=== PATIENT | male | born 1990 | race Caucasian/White ===

== ENCOUNTER 2016-10-20 18:12 | Emergency (ER) | payer MEDICAID ==
[2016-10-20 18:36] VITALS: BP 130/79
== END 2016-10-20 19:26 | disposition left against medical advice (07) ==
LOC: ER 18:12
DX: Z53.21 Procedure and treatment not carried out due to patient leaving prior to being seen by health care provider (principal)

== ENCOUNTER 2017-02-23 07:59 | Emergency (ER) | payer MEDICAID ==
[2017-02-23 08:06] VITALS: BP 145/75
== END 2017-02-23 08:29 | disposition left against medical advice (07) ==
LOC: ER 07:59
DX: Z53.21 Procedure and treatment not carried out due to patient leaving prior to being seen by health care provider (principal)

== ENCOUNTER 2017-03-30 16:26 | Emergency (ER) | payer MEDICAID ==
[2017-03-30] MEDS ORDERED: ALPRAZolam 0.25 MG TABLET PO ONE (16:54)
[2017-03-30 16:59] LABS: Urine Bilirubin Negative (NEGATIVE); Urine Blood Negative /ul (NEGATIVE); Urine Ketone Negative (NEGATIVE); Urine Nitrite Negative (NEGATIVE); Urine Protein Negative (NEGATIVE); Urine Specific Gravity <=1.005 SP.GR. (1.005-1.030); Urine Urobilinogen Normal (NORMAL)
[2017-03-30] MEDS ORDERED: ALPRAZolam 0.25 MG TABLET ONE (17:00)
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
[2017-03-30 17:15] LABS: Hematocrit 46.5 % (42.0-52.0); Hemoglobin 16.8 gm/dL (13.5-18.0); Mean Cell Volume 87.6 fl (78-100); Mean Corpuscular Hemoglobin 31.6 pg (27-31); Mean Corpuscular Hgb Conc 36.1 g/dl (32-36); Mean Platelet Volume 10.7 fl (6.0-9.5); Neutrophil # 4.8 K/mm3 (1.3-6.0); Neutrophil % 62.3 % (42-75.0); Platelet Count 238 K/mm3 (150-450); Red Blood Count 5.31 M/mm3 (4.7-6.0); Red Cell Distribution Width 12.9 % (11.5-14.0); White Blood Count 7.7 K/mm3 (4.0-10.5)
[2017-03-30 17:16] LABS: Cocaine Ur Negative (NEGATIVE); Urine Barbiturate Negative (NEGATIVE); Urine Benzodiazepines Negative (NEGATIVE); Urine Opiates Negative (NEGATIVE); Urine PCP Negative (NEGATIVE); Urine THC Negative (NEGATIVE)
[2017-03-30 17:22] LABS: Urine Appearance Clear; Urine Color Yellow
[2017-03-30 17:23] LABS: Urine Bacteria TRACE; Urine RBC None Seen /hpf (0-5); Urine WBC None Seen /hpf (0-5)
[2017-03-30 17:36] LABS: ALT 26 U/L (19-67); AST 22 U/L (0-48); Alkaline Phosphatase * 58 U/L (50-170); Anion Gap 15.7 mmol/L (6.8-13.8); BUN/Creatinine Ratio 9.3 (9.0-21.6); Bilirubin, Total 0.9 mg/dL (0.0-1.1); Blood Urea Nitrogen 10 mg/dL (6-23); Ca. Corrected For Albumin 8.5 mg/dL (8.4-10.2); Calcium * 8.8 mg/dL (7.9-10.9); Carbon Dioxide 23.7 mmol/L (24-32.6); Chloride 102 mmol/L (97-106); Glucose * 121 mg/dL (70-110); Potassium 3.4 mmol/L (3.4-4.6); Salicylate 3.4 mg/dL (2.8-20.0); Sodium 138 mmol/L (132-142); TSH * 1.541 uIU/mL (0.358-3.74); Total Protein 7.3 gm/dL (6.2-8.2)
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
[2017-03-30] MEDS ORDERED: DIPHENOXYLATE HCL/ATROP SULF 2.5 MG TABLET PO ONE (22:46)
[2017-03-31] MEDS ORDERED: ALPRAZolam 0.25 MG TABLET PO ONE (18:19)
[2017-03-31] MEDS ORDERED: ALPRAZolam 0.25 MG TABLET ONE ×2 (18:33→18:34)
[2017-03-31 18:48] VITALS: BP 146/84
== END 2017-03-31 19:07 | disposition short-term general hospital (02) ==
LOC: ER 16:26
DX: R45.851 Suicidal ideations (principal); F32.9 Major depressive disorder, single episode, unspecified; F51.5 Nightmare disorder; F17.200 Nicotine dependence, unspecified, uncomplicated
CPT/HCPCS: 36415; 80053; 80307; 81001; 84443; 85025; 99284; G0480; G0481

== ENCOUNTER 2017-04-22 12:09 | Emergency (ER) | payer MEDICAID ==
[2017-04-22 12:44] LABS: Hematocrit 46.3 % (42.0-52.0); Hemoglobin 16.3 gm/dL (13.5-18.0); Mean Corpuscular Hgb Conc 35.2 g/dl (32-36); Mean Platelet Volume 10.2 fl (6.0-9.5); Neutrophil # 4.9 K/mm3 (1.3-6.0); Neutrophil % 65.9 % (42-75.0); Platelet Count 245 K/mm3 (150-450); Red Blood Count 5.09 M/mm3 (4.7-6.0); Red Cell Distribution Width 12.9 % (11.5-14.0); White Blood Count 7.5 K/mm3 (4.0-10.5)
[2017-04-22 12:55] LABS: Urine Bilirubin Negative (NEGATIVE); Urine Blood Negative /ul (NEGATIVE); Urine Ketone Negative (NEGATIVE); Urine Nitrite Negative (NEGATIVE); Urine Protein Negative (NEGATIVE); Urine Urobilinogen Normal (NORMAL); Urine pH 6.5 pH (5.0-7.0)
[2017-04-22] MEDS ORDERED: ALPRAZolam 0.25 MG TABLET PO ONE (12:56)
[2017-04-22] MEDS ORDERED: ALPRAZolam 0.25 MG TABLET ONE (12:57)
[2017-04-22 13:04] LABS: Urine Appearance Clear; Urine Bacteria None Seen; Urine Color Yellow; Urine RBC None Seen /hpf (0-5); Urine WBC None Seen /hpf (0-5)
[2017-04-22 13:06] LABS: ALT 52 U/L (19-67); AST 34 U/L (0-48); Albumin * 3.9 gm/dl (3.4-5.0); Alkaline Phosphatase * 74 U/L (50-170); Anion Gap 11.6 mmol/L (6.8-13.8); BUN/Creatinine Ratio 5.8 (9.0-21.6); Bilirubin, Total 0.6 mg/dL (0.0-1.1); Blood Urea Nitrogen 6 mg/dL (6-23); Ca. Corrected For Albumin 8.9 mg/dL (8.4-10.2); Calcium * 9.1 mg/dL (7.9-10.9); Carbon Dioxide 28.2 mmol/L (24-32.6); Chloride 106 mmol/L (97-106); Glucose * 87 mg/dL (70-110); Potassium 3.8 mmol/L (3.4-4.6); Salicylate 3.3 mg/dL (2.8-20.0); Sodium 142 mmol/L (132-142); TSH * 0.942 uIU/mL (0.358-3.74); Total Protein 7.5 gm/dL (6.2-8.2)
[2017-04-22 13:07] LABS: Cocaine Ur Negative (NEGATIVE); Urine Barbiturate Negative (NEGATIVE); Urine Benzodiazepines Negative (NEGATIVE); Urine Opiates Negative (NEGATIVE); Urine PCP Negative (NEGATIVE); Urine THC Positive (NEGATIVE)
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
[2017-04-23] MEDS ORDERED: QUEtiapine FUMARATE 100 MG TABLET PO SCH (00:15)
[2017-04-23] MEDS ORDERED: LORazepam 1 MG TABLET PO ONE (10:17)
[2017-04-23] MEDS ORDERED: LORazepam 1 MG TABLET ONE (10:18)
[2017-04-23 10:21] VITALS: BP 150/104
== END 2017-04-23 10:30 | disposition short-term general hospital (02) ==
LOC: ER 12:09
DX: R45.851 Suicidal ideations (principal); F32.9 Major depressive disorder, single episode, unspecified
CPT/HCPCS: 36415; 80053; 80307; 81001; 84443; 85025; 99285; G0480; G0481

== ENCOUNTER 2017-05-02 16:37 | Emergency (ER) | payer MEDICAID ==
[2017-05-02] MEDS ORDERED: LORazepam 2 MG/ML DISP.SYRIN ONE (16:45)
[2017-05-02] MEDS ORDERED: LORazepam 2 MG/ML DISP.SYRIN IM ONE (16:45)
[2017-05-02] MEDS ORDERED: HALOPERIDOL LACTATE 5 MG/ML VIAL ONE (16:45)
[2017-05-02] MEDS ORDERED: HALOPERIDOL LACTATE 5 MG/ML VIAL IM ONE (16:45)
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
[2017-05-02 17:18] LABS: Hematocrit 50.9 % (42.0-52.0); Hemoglobin 17.6 gm/dL (13.5-18.0); Mean Cell Volume 91.7 fl (78-100); Mean Corpuscular Hemoglobin 31.7 pg (27-31); Mean Corpuscular Hgb Conc 34.6 g/dl (32-36); Mean Platelet Volume 10.3 fl (6.0-9.5); Platelet Count 298 K/mm3 (150-450); Red Blood Count 5.55 M/mm3 (4.7-6.0); Red Cell Distribution Width 12.8 % (11.5-14.0); White Blood Count 14.7 K/mm3 (4.0-10.5)
[2017-05-02 17:20] LABS: Urine Bilirubin Negative (NEGATIVE); Urine Blood Negative /ul (NEGATIVE); Urine Ketone Negative (NEGATIVE); Urine Nitrite Negative (NEGATIVE); Urine Protein Negative (NEGATIVE); Urine Specific Gravity <=1.005 SP.GR. (1.005-1.030); Urine Urobilinogen Normal (NORMAL)
[2017-05-02 17:23] LABS: Total Cells Counted 100
[2017-05-02 17:29] LABS: Urine Appearance Clear; Urine Bacteria None Seen; Urine Color Yellow; Urine RBC None Seen /hpf (0-5); Urine WBC None Seen /hpf (0-5)
[2017-05-02 17:37] LABS: Atypical (Reactive) Lymph 9 % (0-2); Lymphocyte 39 % (20-51); Monocyte 9 % (0-9); Neutrophil 43 % (42-75); Neutrophil # 6.3 K/mm3 (1.3-6.0); Platelet Estimate Normal (NORMAL); RBC Morphology Normal (NORMAL)
[2017-05-02 17:49] LABS: ALT 66 U/L (19-67); AST 27 U/L (0-48); Albumin * 4.3 gm/dl (3.4-5.0); Alkaline Phosphatase * 74 U/L (50-170); Anion Gap 28.5 mmol/L (6.8-13.8); BUN/Creatinine Ratio 8.8 (9.0-21.6); Bilirubin, Total 0.3 mg/dL (0.0-1.1); Blood Urea Nitrogen 11 mg/dL (6-23); Ca. Corrected For Albumin 8.1 mg/dL (8.4-10.2); Calcium * 8.7 mg/dL (7.9-10.9); Carbon Dioxide 15.3 mmol/L (24-32.6); Chloride 104 mmol/L (97-106); Glucose * 86 mg/dL (70-110); Magnesium 2.3 mg/dL (1.2-2.8); Potassium 2.8 mmol/L (3.4-4.6); Salicylate 3.6 mg/dL (2.8-20.0); Sodium 145 mmol/L (132-142); Total Protein 8.2 gm/dL (6.2-8.2)
[2017-05-02 18:57] LABS: Cocaine Ur Negative (NEGATIVE); Urine Barbiturate Negative (NEGATIVE); Urine Benzodiazepines Negative (NEGATIVE); Urine Opiates Negative (NEGATIVE); Urine PCP Negative (NEGATIVE); Urine THC Negative (NEGATIVE)
[2017-05-02] MEDS ORDERED: NORMAL SALINE 1,000 ML IV ONE (19:49)
[2017-05-03] MEDS ORDERED: chlordiazePOXIDE HCL 10 MG CAPSULE PO ONE (08:29)
[2017-05-03] MEDS ORDERED: LORazepam 1 MG TABLET PO ONE (09:38)
[2017-05-03] MEDS ORDERED: LORazepam 1 MG TABLET ONE (09:40)
[2017-05-03] MEDS ORDERED: NICOTINE 21 MG PATC TD ONE (09:48)
[2017-05-03] MEDS: NICOTINE 21 MG PATC TD SCH (09:51)
[2017-05-03] MEDS ORDERED: IBUPROFEN 400 MG TABLET PO ONE (11:15)
[2017-05-03] MEDS ORDERED: IBUPROFEN 400 MG TABLET ONE (11:16)
[2017-05-03] MEDS ORDERED: ZIPRASIDONE HCL 20 MG CAPSULE PO ONE (11:31)
[2017-05-03] MEDS ORDERED: ZIPRASIDONE HCL 20 MG CAPSULE ONE (12:57)
[2017-05-03] MEDS ORDERED: SERTRALINE HCL 50 MG TABLET ONE (20:40)
[2017-05-03] MEDS: SERTRALINE HCL 100 MG TABLET PO SCH (20:43)
[2017-05-03] MEDS ORDERED: SERTRALINE HCL 100 MG PO SCH (21:00)
[2017-05-03] MEDS ORDERED: TOPIRAMATE 50 MG TABLET PO SCH (21:00)
[2017-05-03] MEDS ORDERED: PRAZOSIN HCL 5 MG CAPSULE PO SCH (21:00)
[2017-05-03] MEDS ORDERED: RISPERIDONE 1 MG PO SCH (21:00)
[2017-05-03] MEDS ORDERED: QUEtiapine FUMARATE 100 MG TABLET PO SCH (21:00)
[2017-05-03] MEDS ORDERED: QUETIAPINE FUMARATE 300 MG PO SCH (21:00)
[2017-05-04] MEDS ORDERED: POTASSIUM CHLORIDE 20 MEQ TABLET.SA PO ONE (08:14)
[2017-05-04] MEDS: SERTRALINE HCL 100 MG TABLET PO SCH (08:21)
--- NOTE | 2017-05-04 08:21 | PN ---
Subjective - Date and Time Seen Date: 05/04/17 Time: 08:16 Subjective Narrative: patient has no concerns, slept , well, would like breakfast and clean scrubs, denies any depression or suicidal ideation currently Objective - Review of Systems Generalized/Overall Review: Reports: No Symptoms Reported Respiratory: Denies: Shortness of Breath Cardiac: Denies: Chest Pain Abdominal: Denies: Nausea, Vomiting Genitourinary Symptoms: Reports: No Symptoms Reported Neurological: Denies: Headache - Vitals Vitals: Last Vital Signs Temp 36.4 C L 05/04/17 07:51 Pulse 86 05/04/17 07:51 Resp 14 05/04/17 07:51 BP 128/82 05/04/17 07:51 Pulse Ox 98 05/04/17 07:51 - Exam Constitutional: Present: Alert, Oriented x3, Cooperative, No distress Respiratory: Present: lungs clear, normal breath sounds Cardiovascular/Chest: Present: regular rate, rhythm Abdomen: Present: soft, nontender Extremity: Present: no pedal edema Skin Exam: Present: normal color Neurologic: Present: alert, normal mood/affect Appearance: Present: appropriate appearance Eye contact: Present: cooperative, good eye contact Thoughts: Present: normal thought pattern Assessment/Plan Plan Narrative: reviewed chart, prior notes and labs patient was court committed by his mother for psych evaluation, papers are on the chart, court hearing on 05/07/17 will continue to try to find placement will supplement potassium, give prior maintenance medications
[2017-05-04] MEDS ORDERED: POTASSIUM CHLORIDE 20 MEQ TABLET.SA ONE (08:22)
[2017-05-04] MEDS ORDERED: SERTRALINE HCL 100 MG TABLET PO ONE (08:30)
[2017-05-04] MEDS ORDERED: LORazepam 2 MG/ML DISP.SYRIN IM ONE (10:58)
[2017-05-04] MEDS ORDERED: LORazepam 2 MG/ML DISP.SYRIN ONE (10:59)
[2017-05-04] MEDS ORDERED: NICOTINE 21 MG PATC TD ONE (10:59)
[2017-05-04] MEDS ORDERED: NICOTINE 21 MG PATC TD SCH (11:00)
[2017-05-04] MEDS: NICOTINE 21 MG PATC TD SCH (11:02)
[2017-05-04] MEDS ORDERED: ALPRAZolam 0.25 MG TABLET PO ONE (14:21)
--- NOTE | 2017-05-04 14:29 | PN ---
Progesmichael Note - Interim Narrative: 05/04/17 14:25 patient has been calm and cooperative, is feeling restless and is asking for xanax stating that he usually takes that out patient, 'ativan is not helping' he is also asking very politely whether he could walk around some to get out of the small room that he has been in for almost two days. 'I don't want to cause you any trouble and have you think I am going to run away ' [facility] is accepting patient for transfer, waiting for ETA on transport
[2017-05-04] MEDS ORDERED: ALPRAZolam 0.25 MG TABLET ONE (15:19)
[2017-05-04 15:56] VITALS: BP 127/66
== END 2017-05-04 16:40 | disposition short-term general hospital (02) ==
LOC: ER 16:37
DX: F10.121 Alcohol abuse with intoxication delirium (principal); F20.0 Paranoid schizophrenia; F17.200 Nicotine dependence, unspecified, uncomplicated
CPT/HCPCS: 36415; 80053; 80307; 81001; 83735; 85025; 96372; 99285; G0480; G0481

== ENCOUNTER 2017-05-13 21:29 | Emergency (ER) | payer MEDICAID ==
[2017-05-13] MEDS ORDERED: LORazepam 2 MG/ML DISP.SYRIN ONE (22:18)
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
[2017-05-13 22:20] LABS: Urine Bilirubin Negative (NEGATIVE); Urine Blood Negative /ul (NEGATIVE); Urine Ketone Negative (NEGATIVE); Urine Nitrite Negative (NEGATIVE); Urine Protein Negative (NEGATIVE); Urine Specific Gravity <=1.005 SP.GR. (1.005-1.030); Urine Urobilinogen Normal (NORMAL)
[2017-05-13] MEDS ORDERED: LORazepam 1 MG TABLET PO ONE (22:20)
[2017-05-13] MEDS ORDERED: LORazepam 2 MG/ML DISP.SYRIN IM ONE (22:25)
[2017-05-13 22:26] LABS: Urine Appearance Clear; Urine Color Pale Yellow; Urine RBC None Seen /hpf (0-5); Urine WBC None Seen /hpf (0-5)
[2017-05-13 22:27] LABS: Hematocrit 44.6 % (42.0-52.0); Hemoglobin 16.2 gm/dL (13.5-18.0); Mean Cell Volume 88.1 fl (78-100); Mean Corpuscular Hgb Conc 36.3 g/dl (32-36); Mean Platelet Volume 10.5 fl (6.0-9.5); Neutrophil # 5.1 K/mm3 (1.3-6.0); Neutrophil % 57.7 % (42-75.0); Platelet Count 223 K/mm3 (150-450); Red Blood Count 5.06 M/mm3 (4.7-6.0); Red Cell Distribution Width 12.8 % (11.5-14.0); White Blood Count 8.8 K/mm3 (4.0-10.5)
[2017-05-13 22:27] LABS: Cocaine Ur Negative (NEGATIVE); Urine Bacteria None Seen; Urine Barbiturate Negative (NEGATIVE); Urine Benzodiazepines Negative (NEGATIVE); Urine Opiates Negative (NEGATIVE); Urine PCP Negative (NEGATIVE); Urine THC Negative (NEGATIVE)
[2017-05-13 22:50] LABS: ALT 83 U/L (19-67); AST 47 U/L (0-48); Alkaline Phosphatase * 69 U/L (50-170); Anion Gap 16.5 mmol/L (6.8-13.8); BUN/Creatinine Ratio 7.3 (9.0-21.6); Bilirubin, Total 0.3 mg/dL (0.0-1.1); Blood Urea Nitrogen 7 mg/dL (6-23); Ca. Corrected For Albumin 8.5 mg/dL (8.4-10.2); Calcium * 8.8 mg/dL (7.9-10.9); Carbon Dioxide 26.1 mmol/L (24-32.6); Chloride 105 mmol/L (97-106); Glucose * 122 mg/dL (70-110); Potassium 3.6 mmol/L (3.4-4.6); Salicylate Less than 2.8 mg/dL (2.8-20.0); Sodium 144 mmol/L (132-142); TSH * 4.055 uIU/mL (0.358-3.74); Total Protein 7.3 gm/dL (6.2-8.2)
[2017-05-14] MEDS ORDERED: LORazepam 1 MG TABLET PO ONE (04:17)
[2017-05-14] MEDS ORDERED: LORazepam 1 MG TABLET ONE (04:18)
[2017-05-14] MEDS ORDERED: IBUPROFEN 400 MG TABLET PO ONE (05:19)
[2017-05-14] MEDS ORDERED: IBUPROFEN 400 MG TABLET ONE (05:36)
[2017-05-14 05:44] VITALS: BP 138/88
== END 2017-05-14 09:45 | disposition left against medical advice (07) ==
LOC: ER 21:29
PROC: 0JQG0ZZ Repair Right Lower Arm Subcutaneous Tissue and Fascia, Open Approach (ICD-10-PCS; principal; 2017-05-13)
DX: F10.920 Alcohol use, unspecified with intoxication, uncomplicated (principal); F32.9 Major depressive disorder, single episode, unspecified; S51.811A Laceration without foreign body of right forearm, initial encounter; X78.1XXA Intentional self-harm by knife, initial encounter; Z53.29 Procedure and treatment not carried out because of patient's decision for other reasons; F17.200 Nicotine dependence, unspecified, uncomplicated
CPT/HCPCS: 12002; 36415; 80053; 80307; 81001; 84443; 85025; 96372; 99284; G0480; G0481

== ENCOUNTER 2017-05-20 14:21 | Emergency (ER) | payer MEDICAID | END 2017-05-20 14:30 | disposition home or self-care (01) | LOC: ER 14:21 | DX: Z48.02 Encounter for removal of sutures (principal) ==